=== PATIENT | male | born 2000 | race Two or more races ===

== ENCOUNTER 2024-07-24 01:11 | Emergency (ER) | payer OTHER ==
[~2024-07-24] VITALS: Ht 177.8 cm; Wt 80.3 kg
[2024-07-24] MEDS ORDERED: SUBOXONE 8 MG-1 EACH (01:15)
[2024-07-24] MEDS ORDERED: KETOROLAC TROMETHAMINE 10 MG TABLET PO STA (03:07)
[2024-07-24 03:58] LABS: PH,URINE 5.5 (5.0-8.0); URINE APPEARANCE Clear; URINE BILIRRUBIN Negative (NEGATIVE); URINE BLOOD Negative; URINE COLOR Yellow; URINE GLUCOSE Negative (NEGATIVE); URINE KETONE Negative (NEGATIVE); URINE LEUKOCYTE Negative; URINE NITRATE Negative; URINE PROTEIN Negative (NEGATIVE)
[2024-07-24 04:01] LABS: URINE BACTERIA 40.3 uL (0.0-1933); URINE RBC 9.3 uL (0.0-20.8); URINE WBC 11.7 uL (0.0-23.2)
[2024-07-24 04:05] LABS: URINE EPITHELIAL CELLS 1.3 uL (0.0-38.8)
[2024-07-24] MEDS ORDERED: KETO10TA2 PO (04:48)
== END 2024-07-24 04:52 ==
LOC: ER 01:13
PROVIDERS: General Practice
DX: R07.89 Other chest pain (principal)